=== PATIENT | female | born 1960 | race Two or more races ===

== ENCOUNTER 2024-03-23 12:22 | Emergency (ER) | payer MEDICARE, SELFPAY ==
[2024-03-23 12:24] VITALS: BMI 39.1
[2024-03-23 12:39] VITALS: BP 140/73; PULSE 85; RESP 18; TEMP 36.9; O2SAT 97; BMI 43.0
--- NOTE | 2024-03-23 12:41 | XR_ITS ---
Examination: Pelvic ultrasound, transabdominal, complete Technique: Transabdominal ultrasound of the pelvis performed using grayscale imaging Date and time of exam: March 23, 2024 1347 hours INDICATIONS: Postmenopausal bleeding episode 14 days ago FINDINGS: Uterus 10.7 x 4.8 x 7.1 cm anteverted Uterine fundal area of fibroid degeneration 2.7 x 2.0 x 2.5 cm uterine body area of fibroid degeneration 4.2 x 3.6 x 4.8 cm Endometrial stripe 0.4 cm Ovaries obscured by bowel gas IMPRESSION: Uterine areas of fibroid degeneration as above Endometrial stripe is not thickened
--- NOTE | 2024-03-23 12:59 | PD.EDRME ---
Rapid Medical Screening Exam RME Arrival date/time: 03/23/24 12:22 64-year-old female presents to the emergency department complaints of vaginal bleeding x 2 weeks Chief Complaint: Urogenital-Female Time Seen by Provider: 03/23/24 12:28 Vital signs: Vital Signs Temperature 98.5 F 03/23/24 12:39 Pulse Rate 85 03/23/24 12:39 Respiratory Rate 18 03/23/24 12:39 Blood Pressure 140/73 H 03/23/24 12:39 Pulse Oximetry (%) 97 03/23/24 12:39 Oxygen Delivery Method Room Air 03/23/24 12:39
[2024-03-23 13:04] LABS: Basophils % (Auto) 1 % (0-2.5); Eosinophils # (Auto) 0.2 Thou/mm3 (0.0-0.5); Eosinophils % (Auto) 3 % (0-10); Hematocrit 35.1 % (36.0-46.0); Hemoglobin 11.4 g/dL (12.0-16.0); Immature Granulocytes % (Auto) 0 % (0-0); Immature Granulocytes Auto 0.01 Thou/mm3 (0.00-0.00); Lymphocytes # (Auto) 1.8 Thou/mm3 (1.0-4.8); Lymphocytes % (Auto) 28 % (10-50); Mean Corpuscular HGB Conc 32.5 g/dl (31.0-37.0); Mean Corpuscular Hemoglobin 24.9 pg (25.0-35.0); Mean Corpuscular Volume 77 fL (80-100); Monocytes # (Auto) 0.4 Thou/mm3 (0.0-0.8); Monocytes % (Auto) 6 % (0-12); Neutrophils % (Auto) 63 % (37-80); Nucleated Red Blood Cell % 0 /100 WBC (0); Platelet Count 235 Thou/mm3 (140-440); RDW Standard Deviation 41.9 fL (36.4-46.3); Red Blood Count 4.58 Miln/mm3 (4.00-5.20); White Blood Count 6.3 Thou/mm3 (3.6-11.0)
[2024-03-23 13:23] LABS: Partial Thromboplastin Time 25.6 Seconds (22.0-36.0)
[2024-03-23 13:42] LABS: Alanine Aminotransferase < 7 U/L (10-49); Albumin, Serum 4.3 gm/dL (3.4-4.8); Albumin/Globulin Ratio 1.5 (1.2-2.2); Alkaline Phosphatase 85 U/L (46-116); Anion Gap 7 (7-16); Aspartate Amino Transferase 10 U/L (0-34); BUN/Creatinine Ratio 18 Ratio (12-20); Bilirubin,Total 0.8 mg/dL (0.3-1.2); Blood Urea Nitrogen 11 mg/dL (9-23); Carbon Dioxide 24.9 mMol/L (20.0-31.0); Chloride 108 mMol/L (98-107); Creatinine (Component) 0.6 mg/dL (0.6-1.3); Estimated Creatinine Clearance 99.2 mL/min (>60); Globulin 2.9 gm/dL (2.3-3.5); Glucose 148 mg/dL (74-106); Lipase 36 U/L (12-53); Osmolality,Calculated 281 (275-295); Potassium 4.1 mMol/L (3.4-5.1); Sodium 140 mMol/L (136-145); Total Protein 7.2 gm/dL (5.7-8.2); eGFR > 60 See Note
[2024-03-23 13:55] LABS: Collection Type, Urine Clean Catch; Squamous Epithelial Cell,Urine 0 /hpf (0-5)
[2024-03-23 14:02] LABS: Bilirubin,Urine Negative (Negative); Blood,Urine 3+ (Negative); Clarity,Urine Clear (Clear/Hazy); Color,Urine Colorless (Lt Yel-Yel); Culture Indicated,Urine Not Indicated; Glucose, Urine Negative (Negative); Ketones,Urine Negative (Negative); Leukocyte Esterase,Urine Negative (Negative); Nitrite,Urine Negative (Negative); PH,Urine 6.5 (5.0-7.0); Protein,Urine Negative (Neg - Trace); RBC,Urine 7 /hpf (0-3); Specific Gravity,Urine 1.006 (1.001-1.035); Urobilinogen,Urine Negative mg/dL (0.0-1.0); WBC,Urine 1 /hpf (0-5)
--- NOTE | 2024-03-23 16:03 | PD.EDFMALE ---
ED Female Urogenital RME/HPI General Chief complaint: Urogenital-Female Stated complaint: Vaginal bleeding x14DAY Time Seen by Provider: 03/23/24 12:28 Arrival date/time: 03/23/24 12:22 RME / HPI RME / HPI Narrative: 03/23/24 12:22 64-year-old female presents to the emergency department complaints of vaginal bleeding x 2 weeks This section includes all my notes and documentations, including HPI, PE, and ED course.? Magdi Osuna MD HPI: 64-year-old female here with 2-week history of vaginal bleeding and lower abdominal pain. No nausea or vomiting. Eating normally. No fever or chills. No urinary symptoms. No other complaints. ROS: All negative except as documented in HPI. Physical Exam: General:? Alert and oriented.? No acute distress when remaining still.?? Eyes:? Conjunctivae and lids clear.? ENT:? No nasal congestion.? Neck:? Supple.? Heart:? RRR.? Lungs:? No respiratory distress.? Good air movement.? No rhonchi, wheezing, rales.?? Abdomen:? Soft and nontender.?? Legs:? No clubbing, cyanosis, edema.? Skin:? Warm and dry.?? Neuro:? Alert and oriented X 3.?? I reviewed all diagnostic test results. My interpretation of the pelvic ultrasound is uterine areas of fibroid degeneration. Blood tests and urine tests?unremarkable. At this point, diagnoses include?fibrosis. Recommended more outpatient care. Based on my best medical judgment, made decision no further evaluation or treatment indicated at this time.? Patient understands and agrees to the discharge instructions customized and printed, see below. Discharge Instructions from Dr. Osuna printed for you: 1. After evaluation, you have fibroids in your uterus. This is not cancer. But they are tumors that can cause pain and bleeding. 2. Fortunately, you didn't lose too much blood needing transfusion. 3. But to help your body restore the blood loss, we need to increase iron in your diet, such as red meat and egg yolks. 4. Tylenol with codeine for severe pain. 5. See a private doctor outside the ER on 03/24/2024 for recheck and further care. Ask to review all test results and official radiology reports, to make sure you receive all necessary follow-ups and monitoring. Ask for a referral to see chief librarian extension department for further care of your fibroids. 6. Seek immediate medical care with intolerable pain, severe vaginal bleeding (soaking more than 3 pads per hour), or with any concerns. Instrucciones de tim del Dr. Osuna impresas para usted: 1. Despu?s de la evaluaci?n, tiene fibromas en el ?tero. No se trata de c?ncer, mila son tumores que pueden causar dolor y sangrado. 2. Afortunadamente, no perdi? demasiada ivon denny para necesitar lillie transfusi?n. 3. Mila para ayudar a leong cuerpo a recuperar la p?rdida de ivon, necesitamos aumentar el hua en leong dieta, denny la carne max y las yemas de huevo. 4. Tylenol con code?na para el dolor intenso. 5. Visite a un m?dico privado fuera de la mary de emergencias el 03/24/2024 para que lo revisen nuevamente y le brinden m?s atenci?n. Pida que le revisen todos los resultados de las pruebas y los informes radiol?gicos oficiales para asegurarse de recibir todos los seguimientos y controles necesarios. Pida lillie derivaci?n para nba a un ginec?logo para recibir m?s atenci?n para chelsy fibromas. 6. Busque atenci?n m?dica inmediata si tiene dolor intolerable, sangrado vaginal intenso (que empape m?s de 3 toallas sanitarias por hora) o si tiene alguna inquietud. Related Data Home Medications ?Medication ?Instructions ?Recorded ?Confirmed benazepril 10 mg tablet 1 tab PO QDAY 12/23/17 09/02/21 metformin 500 mg tablet 1,000 mg PO BID 12/23/17 09/02/21 (Glucophage) multivitamin 1 tab PO QAM 12/23/17 09/02/21 gabapentin 100 mg capsule 100 mg PO TID 09/28/18 09/02/21 levothyroxine 25 mcg tablet 25 mcg PO QDAY 09/28/18 09/02/21 oxybutynin chloride 5 mg tablet 5 mg PO QDAY 07/10/21 09/02/21 Previous Rx's ?Medication ?Instructions ?Recorded acetaminophen 300 mg-codeine 30 mg 2 tab PO TID PRN pain #20 tabs 03/23/24 tablet Allergies Allergy/AdvReac Type Severity Reaction Status Date / Time No Known Allergies Allergy Verified 03/23/24 12:27 Review of Systems Review of Systems Systems Reviewed: All systems reviewed, normal except as documented Past Medical History Past Medical History NEUROLOGIC: Positive Neurological Disorders, Cerebrovascular Accident (possible mild 6 years ago) and Brain Tumor CARDIAC: Positive Cardiac Disorders, Hypercholesterolemia (no meds) and Hypertension REPRODUCTIVE: Positive Previous Pregnancies MUSCULOSKELETAL: Positive Musculoskeletal Disorders, Arthritis and Fractures ENDOCRINE: Positive Endocrine Disorders and Diabetes Mellitus Type 2 OTHER HISTORY: Positive Radiation Therapy Family History FAMILY HISTORY: Positive Family Cardiac Disorders, Family Gastrointestinal Problems and Family Cancer Surgical History SURGICAL: Positive Joint Replacement, Arthroscopy, Neurologic Surgery and Tubal Ligation Social History SMOKING STATUS: Never smoker SECOND HAND EXPOSURE: No ED Exam Narrative Physical exam: As noted in HPI Course Quality Measures none Orders Category Date Time Status US pelvic complete Stat Exams 03/23/24 12:41 Completed CBC Stat Lab 03/23/24 12:51 Completed Comprehensive Metabolic Panel Stat Lab 03/23/24 12:51 Completed Lipase Stat Lab 03/23/24 12:51 Completed PT [Prothrombin Time with INR] Stat Lab 03/23/24 12:51 Completed PTT [Partial Thromboplastin Time] Stat Lab 03/23/24 12:51 Completed UA, C/S IF [Urinalysis, C/S if Indicated] Stat Lab 03/23/24 13:48 Completed Vital Signs Vital signs: Vital Signs Temperature 98.5 F 03/23/24 12:39 Pulse Rate 85 03/23/24 12:39 Respiratory Rate 18 03/23/24 12:39 Blood Pressure 140/73 H 03/23/24 12:39 Pulse Oximetry (%) 97 03/23/24 12:39 Oxygen Delivery Method Room Air 03/23/24 12:39 Pulse ox is 97% on room air which is adequate. Urogenital - Female Patient data External records reviewed:: [facility] previous records Clinical information provided by:: patient and family Social determinants that could affect healthcare access:: none Patient has the following chronic illnesses:: Hypertension, diabetes How is presenting disease/condition affected by chronic disease/condition?: uneffected by Evaluation data The following diagnostics were reviewed and interpreted by me:: lab results and radiology exam(s) Lab and/or radiology exams considered but not ordered:: None Interpretation Summary: Fibroids Medications / Prescriptions Medications or Prescriptions considered but not ordered:: None Medication administrations:: None Consultations Consultation(s) initiated? (list below): No Diagnosis Urogenital Female Differential Diagnosis: urinary tract infection, ovarian cyst, ruptured ovarian cyst, cystitis and other (Fibroids, appendicitis) Most likely diagnosis given after review of the tests above:: Fibroids Admission Indicated Admission indicated?: not indicated Explain why admission is indicated or not indicated:: Admission criteria not met Admission Request Was there a request for admission?: No Disposition Plan Disposition Plan: Discharge Discharge Attestation Discharge Attestation: The patient and all family members were given an opportunity to ask questions and understood the discharge instructions. Discharge instructions specifically effects, indications for sooner follow up or return to the emergency department, and the expected course of current diagnosis. Patient condition: Stable Discharge Plan Plan Patient Disposition: HOME (Self Care) Prescriptions/Referrals Prescriptions/Med Rec: New acetaminophen-codeine 300-30 mg tablet 2 tab PO TID MDD 6 PRN (Reason: pain) Qty: 20 0RF No Action oxybutynin chloride 5 mg tablet 5 mg PO QDAY multivitamin Tablet 1 tab PO QAM benazepril 10 mg Tablet 1 tab PO QDAY metformin [Glucophage] 500 MG tablet 1,000 mg PO BID levothyroxine 25 mcg Tablet 25 mcg PO QDAY gabapentin 100 mg Capsule 100 mg PO TID Referrals: Shaylee Gallo FNP [Primary Care Provider] - In 1 week Problem List Clinical Impression: Fibroids Patient/Caregiver Discharge Instructions Discharge Activity: activity as tolerated Education Materials: ED Uterine Fibroids Additional Instructions: Discharge Instructions from Dr. Osuna printed for you: 1. After evaluation, you have fibroids in your uterus. This is not cancer. But they are tumors that can cause pain and bleeding. 2. Fortunately, you didn't lose too much blood needing transfusion. 3. But to help your body restore the blood loss, we need to increase iron in your diet, such as red meat and egg yolks. 4. Tylenol with codeine for severe pain. 5. See a private doctor outside the ER on 03/24/2024 for recheck and further care. Ask to review all test results and official radiology reports, to make sure you receive all necessary follow-ups and monitoring. Ask for a referral to see chief librarian extension department for further care of your fibroids. 6. Seek immediate medical care with intolerable pain, severe vaginal bleeding (soaking more than 3 pads per hour), or with any concerns. Instrucciones de tim del Dr. Osuna impresas para usted: 1. Despu?s de la evaluaci?n, tiene fibromas en el ?tero. No se trata de c?ncer, mila son tumores que pueden causar dolor y sangrado. 2. Afortunadamente, no perdi? demasiada ivon denny para necesitar lillie transfusi?n. 3. Mila para ayudar a leong cuerpo a recuperar la p?rdida de ivon, necesitamos aumentar el hua en leong dieta, denny la carne max y las yemas de huevo. 4. Tylenol con code?na para el dolor intenso. 5. Visite a un m?dico privado fuera de la mary de emergencias el 03/24/2024 para que lo revisen nuevamente y le brinden m?s atenci?n. Pida que le revisen todos los resultados de las pruebas y los informes radiol?gicos oficiales para asegurarse de recibir todos los seguimientos y controles necesarios. Pida lillie derivaci?n para nba a un ginec?logo para recibir m?s atenci?n para chelsy fibromas. 6. Busque atenci?n m?dica inmediata si tiene dolor intolerable, sangrado vaginal intenso (que empape m?s de 3 toallas sanitarias por hora) o si tiene alguna inquietud. Print Language: Turkish Stand Alone Forms: [employer]enu Award Info., Patient Portal Info Letter
== END 2024-03-23 22:32 | disposition home or self-care (01) ==
PROVIDERS: Nurse Practitioner Primary Care; Emergency Provider Emergency Medicine; PCP Nurse Practitioner Family
DX: D25.9 Leiomyoma of uterus, unspecified (principal)
CPT/HCPCS: 36415; 76856; 80053; 81001; 83690; 85025; 85610; 85730; 99284

== ENCOUNTER → 2024-05-30 | Outpatient (CLI) | payer MEDICARE, SELFPAY ==
[2024-05-30 08:38] LABS: Basophils % (Auto) 0 % (0-2.5); Eosinophils # (Auto) 0.2 Thou/mm3 (0.0-0.5); Eosinophils % (Auto) 3 % (0-10); Hematocrit 36.9 % (36.0-46.0); Immature Granulocytes % (Auto) 0 % (0-0); Immature Granulocytes Auto 0.02 Thou/mm3 (0.00-0.00); Lymphocytes # (Auto) 1.7 Thou/mm3 (1.0-4.8); Lymphocytes % (Auto) 28 % (10-50); Mean Corpuscular HGB Conc 32.5 g/dl (31.0-37.0); Mean Corpuscular Volume 80 fL (80-100); Monocytes # (Auto) 0.3 Thou/mm3 (0.0-0.8); Monocytes % (Auto) 6 % (0-12); Neutrophils # (Auto) 3.8 Thou/mm3 (1.8-7.7); Neutrophils % (Auto) 63 % (37-80); Nucleated Red Blood Cell % 0 /100 WBC (0); Platelet Count 254 Thou/mm3 (140-440); RDW Standard Deviation 41.1 fL (36.4-46.3); Red Blood Count 4.61 Miln/mm3 (4.00-5.20); White Blood Count 6.1 Thou/mm3 (3.6-11.0)
[2024-05-30 08:47] LABS: Glucose Estimated Average 154 mg/dL (80-131)
[2024-05-30 09:10] LABS: Alanine Aminotransferase 13 U/L (10-49); Albumin, Serum 4.1 gm/dL (3.4-4.8); Albumin/Globulin Ratio 1.5 (1.2-2.2); Alkaline Phosphatase 93 U/L (46-116); Anion Gap 10 (7-16); Aspartate Amino Transferase < 8 U/L (0-34); BUN/Creatinine Ratio 14 Ratio (12-20); Bilirubin,Total 0.7 mg/dL (0.3-1.2); Blood Urea Nitrogen 10 mg/dL (9-23); Calcium 8.9 mg/dL (8.3-10.6); Calcium (Corrected) 8.9 mg/dL (8.5-10.1); Carbon Dioxide 24.9 mMol/L (20.0-31.0); Cardiac Risk Estimate 4.7 RATIO (3.7-5.6); Chloride 106 mMol/L (98-107); Cholesterol 218 mg/dL (132-200); Creatinine (Component) 0.7 mg/dL (0.6-1.3); Globulin 2.7 gm/dL (2.3-3.5); Glucose 153 mg/dL (74-106); HDL Cholesterol 46 mg/dL (40-60); LDL Cholesterol,Calculated 135 mg/dL (0-130); Osmolality,Calculated 283 (275-295); Potassium 4.2 mMol/L (3.4-5.1); Sodium 141 mMol/L (136-145); Total Protein 6.8 gm/dL (5.7-8.2); Triglycerides 183 mg/dL (30-150); eGFR > 60 See Note
[2024-05-30 11:19] LABS: Creatinine MALB Rnd Ur 181 mg/dL (30-125); Microalbumin Creat Ratio 7 mg/gCrea (<30); Microalbumin, Random Urine 13 mg/L (0-300)
== END | disposition home or self-care (01) ==
LOC: COPL 07:50
PROVIDERS: PCP Family Medicine; Referring Provider Student in an Organized Health Care Education/Training Program; Visit Provider Student in an Organized Health Care Education/Training Program
DX: D64.9 Anemia, unspecified (principal); E11.65 Type 2 diabetes mellitus with hyperglycemia; E78.5 Hyperlipidemia, unspecified; I10 Essential (primary) hypertension
CPT/HCPCS: 36415; 80053; 80061; 82043; 82570; 83036; 85025

== ENCOUNTER → 2024-06-12 | Outpatient (CLI) | payer MEDICARE, SELFPAY ==
--- NOTE | 2024-06-12 | XR_ITS ---
Examination: Screening digital mammography, bilateral Computer aided detection 3-D breast Tomosynthesis, bilateral Date and time of exam: June 12, 2024 at 1228 hours Compared to mammograms dating to May 20, 2015 Indication: Screening Technique: Nonmagnified MLO, CC views of the breasts to been obtained, reconstructed from 3-D Tomosynthesis images. R2 computer aided detection program utilized for evaluation of suspicious masses and/or abnormal calcifications. 3-D Tomosynthesis images obtained. Findings: Scattered areas of fibroglandular density 14 mm focal asymmetry upper outer left breast Benign calcifications Impression: BI-RADS Category 0: Incomplete: Additional imaging evaluation 14 mm focal asymmetry upper outer left breast, recommend follow-up spot tomographic views of this asymmetry as well as left breast sonography to complete workup
--- NOTE | 2024-06-12 12:00 | XR_ITS ---
Examination: Transvaginal ultrasound of the pelvis, complete Technique: Transvaginal sonographic images pelvis performed using abreu scale imaging Exam date and time: June 12, 2024 1159 hours INDICATIONS: Postmenopausal bleeding episode 2 months ago FINDINGS: Uterus 6.9 cm fundal uterine mass 13 x 13 x 14 mm Endometrial stripe 0.8 cm Ovaries obscured by bowel gas IMPRESSION: Abnormal thickening of the endometrial stripe, differential would include endometrial hyperplasia, malignant neoplasm of the endometrium Recommend MRI pelvis follow-up pre and postcontrast.
--- NOTE | 2024-06-12 12:30 | XR_ITS ---
Examination: Bone densitometry Date and time of exam:June 12, 2024 1230 hours INDICATIONS: Menopause age 44 Technique: Lumbar spine and hip total bone mineralization values of an calculated. Peak reference and age match control results have been displayed. Findings: Lumbar spine total bone mineralization is0.839 gm/cm2. This is 1.9 standard deviations below peak reference. This is 0.1 standard deviations below age-matched controls. Hip total bone mineralization is 0.731 gm/cm2 This is 1.7 standard deviations below peak reference. This is 0.6 standard deviations below age-matched controls Impression: There is osteopenia based on lumbar spine measurements. There is osteoporosis based on hip measurements
== END | disposition home or self-care (01) ==
LOC: CDIM 11:38
PROVIDERS: PCP Family Medicine; Referring Provider Student in an Organized Health Care Education/Training Program; Visit Provider Student in an Organized Health Care Education/Training Program
DX: Z12.31 Encounter for screening mammogram for malignant neoplasm of breast (principal); R92.8 Other abnormal and inconclusive findings on diagnostic imaging of breast; N64.89 Other specified disorders of breast; R93.89 Abnormal findings on diagnostic imaging of other specified body structures; M85.88 Other specified disorders of bone density and structure, other site; M81.0 Age-related osteoporosis without current pathological fracture
CPT/HCPCS: 76830; 77063; 77067; 77080

== ENCOUNTER 2024-06-21 12:56 | Outpatient (AMB) | payer MEDICARE, SELFPAY ==
[2024-06-21 13:22] VITALS: BP 146/85; PULSE 81; RESP 81; TEMP 36; O2SAT 99; BMI 42.8
--- NOTE | 2024-06-21 13:22 | GYNCLNT_ITS ---
Vital Signs 06/21/24 13:22 Height 1.52 m Height Method Stated Weight 98.94 kg Weight Measurement Method Standing Scale BMI 42.8 BP 146/85 H Blood Pressure Source Automatic Cuff Blood Pressure Location Left Upper Arm Position Sitting Respiration 81 H Pulse 81 Pulse Source Monitor Temp 96.8 F Temp Source Oral Pulse Oximetry (%) 99 Oxygen Delivery Method Room Air Allergies/Home Meds Allergies & Medications Allergies No Known Allergies Allergy (Verified 06/21/24 13:23) Medication Reconciliation benazepril 10 mg tablet 1 tab PO QDAY 12/23/17 [History Confirmed 06/21/24] metformin 500 mg tablet (Glucophage) 1,000 mg PO BID 12/23/17 [History Confirmed 06/21/24] multivitamin 1 tab PO QAM 12/23/17 [History Confirmed 06/21/24] gabapentin 100 mg capsule 100 mg PO TID 09/28/18 [History Confirmed 06/21/24] levothyroxine 25 mcg tablet 25 mcg PO QDAY 09/28/18 [History Confirmed 06/21/24] oxybutynin chloride 5 mg tablet 5 mg PO QDAY 07/10/21 [History Confirmed 06/21/24] acetaminophen 300 mg-codeine 30 mg tablet 2 tab PO TID PRN pain #20 tabs 03/23/24 [Rx Confirmed 06/21/24] Intake Visit Data Collection New Patient or Established: Established Patient (seen at [facility] within 3 years) Reason for Visit:: Referral for postmenopausal bleeding Seen by Clinical Staff ONLY (RN/MA): No Physical Therapy Instructor Required: Yes Do You Feel Safe at Home: Yes ([employer]/ [employer] ) Authorities Contacted: N/A PCP or OBGYN visit in last 3 months: Yes Date of Last PCP or OBGYN visit: 06/12/24 Hx Now: No Are you currently on any form of Control: No Pain Present Currently: No Pain Scale Used: Pisano-Nunez/Numerical Pain scale:: 0 Smoking Status Smoking Status: Never smoker Mold Operator history Mold Operator History Menstrual regularity: irregular Monthly: No Age at menarche: 12 Menopausal: Yes If menopausal, at what age did it occur: 44 Years of hormone replacement (if applicable): 0 Currently sexually active: No Questionnaires PHQ-9 PHQ-2 Over the last 2 weeks, how often have you been bothered by any of the following problems? 1. Little interest or pleasure in doing things: not at all 2. Feeling down, depressed, or hopeless: not at all Total score: 0 PHQ-9 3. Trouble falling or staying asleep, or sleeping too much: Not at all 4. Feeling tired or having little energy: Not at all 5. Poor appetite or overeating: Not at all 6. Feeling bad about yourself - or that you are a failure or have let yourself or your family down: Not at all 7. Trouble concentrating on things, such as reading the newspaper or watching television: Not at all 8. Moving or speaking so slowly that other people could have noticed? - Or the opposite - being so fidgety or restless that you have been moving around a lot more than usual: not at all 9. Thoughts that you would be better off or of hurting yourself in some way: Not at all Total score: 0 If you checked off any problems, how difficult have these problems made it for you to do your work, take care of things at home, or get along with other people?: not difficult at all Source: Developed by Drs. Demetrio Capellan, Teresa Quiñonez, Mendoza Jones and colleagues, with an educational elsy from [employer]. Depression screen completed yes Social History Living Situation History Marital Status: Single Lives With: Family Housing: House Housing Other:: pt lives with daughter Tobacco History Smoking Status: Never smoker Second Hand Smoke Exposure: No Alcohol History Alcohol Intake: Never Domestic Abuse History Do You Feel Safe at Home: Yes ([employer]/ [employer] ) Past Medical History Past Medical History Have you ever been diagnosed with any of the following: Neurological Problems Cerebrovascular Accident (CVA): Yes (possible mild 6 years ago) Brain Tumor: Yes (Patient's status post 2 brain surgeries and radiation. No records availabl) Seizures: No Cardiology Problems Hypercholesterolemia: Yes (no meds) Congestive Heart Failure: No Hypertension: Yes Respiratory Problems Asthma: No Tuberculosis: No Stomache/Intestinal Problems Colorectal Cancer: No Genital/Urinary Problems Renal Disease: No Reproductive Problems Breast Cancer: No Fibroids: Yes Previous Pregnancies: Yes (History of vaginal delivery x 7 in the past) Musculoskeletal Problems Arthritis: Yes Rheumatoid Arthritis: No Fractures: Yes Endocrine Problems Diabetes Mellitus Type 1: No Diabetes Mellitus Type 2: Yes Hyperthyroidism: No Hypothyroidism: No Blood Problems Anemia: Yes Other Problems Hospitalization: Yes (For childbirth and brain surgeries) Blood Transfusions: No Anesthesia Reactions: No Radiation Therapy: Yes (For brain neoplasms) Surgical History Additional Surgical History: Brain surgery x 2, left knee surgery x 2. Vaginal delivery x 7. History of Present Illness HPI Narrative The patient is a very pleasant , Libyan-speaking only 64-year-old presents as a referral from Pran[facility] for postmenopausal bleeding. The patient has been bleeding on and off for 2 months. I do not have any lab work but I do have an ultrasound revealing patient to have 2 fibroids present. One is 2.7 x 2 x 2.5 cm in the uterine body and the other is 4.2 x 3.6 x 4.8 cm. The uterus was anteverted measuring 10.7 x 4.8 x 7.1 cm and the stripe was 0.4 cm. This was performed 03/23/2024. Patient presents today to discuss her postmenopausal bleeding. Of note she is Libyan-speaking only and the entire history and physical exam is conducted with my medical office assistant instructor Holden as a miller kiln dried salt. Review of Systems Review of Systems Narrative Review of Systems: Patient reports vaginal bleeding x 2 months. She stopped her cycles at age 44. She is not on blood thinners. She denies being sexually active. She denies abnormal discharge or pelvic pain. Exam Narrative Physical exam: Patient is pleasant and cooperative. General General Appearance: alert, comfortable, cooperative, well groomed and obese Neck Neck exam: Present normal inspection, full ROM and trachea midline Chest Chest inspection: Present normal inspection and symmetric chest wall rise Resp Respiratory exam: Present normal lung sounds bilaterally Card Cardiovascular exam: Present regular rate, normal rhythm and normal heart sounds Abdominal Abdominal exam: Present soft, normal bowel sounds and other (Abdomen obese ) External exam: Present normal external exam Speculum exam: Present normal speculum exam Bimanual exam: Present other (Uterine enlargement. Difficult to palpate secondary to body habitus. Approximately 8 weeks size uterus.) Psych Psychiatric exam: Present normal affect and normal mood Skin Skin exam: Present warm, dry, intact and normal color Assessment & Plan Diagnosis / Problem List (1) Malignant neoplasm of brain: Status: Acute Qualifiers: Malignant neoplasm of brain location: cerebellum Qualified Code(s): C71.6 - Malignant neoplasm of cerebellum Assessment and Plan: Patient needs to be cleared by neuro before undergoing any surgery. (2) Abnormal vaginal bleeding in postmenopausal patient: Status: Acute Plan: The patient will need a hysteroscopy dilation curettage versus a hysterectomy. Patient prefers a hysterectomy. An endometrial biopsy could not be performed in the office today (3) Intramural uterine fibroid: Status: Acute Assessment and Plan: Patient has 2 fibroids present which is likely the reason she is having postmenopausal bleeding. (4) Morbid obesity with BMI of 40.0-44.9, adult: Status: Acute Assessment and Plan: An elevated BMI puts the patient at higher risk for uterine cancer. It also meets make surgical removal of her uterus more difficult. Will consider total abdominal hysterectomy versus an LAVH. Additional Plan Follow Up: 6 Weeks Advanced Care Planning Advance care planning discussed with:: patient Office Procedures OB Clinic LOC & Office Proc's Nursing/Assessment Patient Status: Established Patient OB Clinic Nursing Assessment: BP Monitoring, Medication Reconciliation, Update PMH in EMR and Vital Signs OB Clinic Coordination of Care: Consent,records obtained, informed consent, Education Simp Pt/Fam and Staff clarify orders Miscellaneous Interventions: Pelvic/Pap Smear Set up Established Patient Charge Established Patient Point Assignment: 95 Established Patient Point Charge: EP Level 3 (80-115)
== END 2024-06-21 13:47 | disposition home or self-care (01) ==
LOC: HODSOBC 12:56
PROVIDERS: PCP Family Medicine; Referring Provider Family Medicine; Supervising Provider Obstetrics & Gynecology; Visit Provider Obstetrics & Gynecology
DX: N95.0 Postmenopausal bleeding (principal); C71.6 Malignant neoplasm of cerebellum; D25.1 Intramural leiomyoma of uterus; E66.01 Morbid (severe) obesity due to excess calories; Z68.41 Body mass index [BMI] 40.0-44.9, adult
CPT/HCPCS: 99213; G0463

== ENCOUNTER → 2024-07-04 | Outpatient (CLI) | payer MEDICARE, SELFPAY ==
--- NOTE | 2024-07-04 08:30 | XR_ITS ---
Examination: Breast ultrasound, unilateral, left complete INDICATIONS: Mammogram June 12, 2024 14 mm focal asymmetry upper outer left breast Date and time of exam: July 04, 2024 0819 hours Technique: Real-time abreu scale ultrasonographic imaging performed left breast including all 4 quadrants as well as nipple retroareolar and axillary region. Findings: No cystic or solid mass IMPRESSION: BI-RADS Category 1: Negative study
--- NOTE | 2024-07-04 09:00 | XR_ITS ---
Examination: Diagnostic digital mammography, unilateral, left Computer aided detection 3-D breast Tomosynthesis, unilateral Date and time of exam: July 04, 2024 0807 hours INDICATIONS: Mammogram June 12, 2024 14 mm focal asymmetry upper outer left breast Technique: Nonmagnified MLO, CC views of the left breast have been obtained, reconstructed from 3-D Tomosynthesis images. R2 computer aided detection program utilized for evaluation of suspicious masses and/or abnormal calcifications. 3-D Tomosynthesis images obtained. Findings: Scattered areas of fibroglandular density. No suspicious mass is noted on the spot compression views Impression: BI-RADS category 2: Benign findings Return to yearly follow-up mammography
== END | disposition home or self-care (01) ==
LOC: CDIM 07:52
PROVIDERS: Referring Provider Student in an Organized Health Care Education/Training Program; Visit Provider Student in an Organized Health Care Education/Training Program
DX: R92.322 Mammographic fibroglandular density, left breast (principal)
CPT/HCPCS: 76641; 77061; 77065; G0279

== ENCOUNTER → 2024-08-29 | Outpatient (CLI) | payer MEDICARE, MEDICAID, SELFPAY ==
--- NOTE | 2024-08-29 08:28 | XR_ITS ---
Examination: PA lateral chest 2 views TECHNIQUE: Upright PA lateral chest 2 views 12/29/2024 0834 hours INDICATIONS: Coughing chest pain beginning 2 weeks ago. FINDINGS: Normal heart size Lungs are clear. The osseous structures are intact IMPRESSION: No active disease
[2024-08-29 09:37] LABS: Quantiferon-TB* See Sep Rpt
[2024-08-29 10:54] LABS: Basophils % (Auto) 0 % (0-2.5); Eosinophils # (Auto) 0.2 Thou/mm3 (0.0-0.5); Eosinophils % (Auto) 2 % (0-10); Hemoglobin 12.2 g/dL (12.0-16.0); Immature Granulocytes % (Auto) 1 % (0-0); Immature Granulocytes Auto 0.05 Thou/mm3 (0.00-0.00); Lymphocytes # (Auto) 1.7 Thou/mm3 (1.0-4.8); Lymphocytes % (Auto) 26 % (10-50); Mean Corpuscular HGB Conc 33.9 g/dl (31.0-37.0); Mean Corpuscular Hemoglobin 27.2 pg (25.0-35.0); Mean Corpuscular Volume 80 fL (80-100); Monocytes # (Auto) 0.4 Thou/mm3 (0.0-0.8); Monocytes % (Auto) 5 % (0-12); Neutrophils # (Auto) 4.3 Thou/mm3 (1.8-7.7); Neutrophils % (Auto) 65 % (37-80); Nucleated Red Blood Cell % 0 /100 WBC (0); Platelet Count 236 Thou/mm3 (140-440); RDW Standard Deviation 38.5 fL (36.4-46.3); Red Blood Count 4.49 Miln/mm3 (4.00-5.20); White Blood Count 6.6 Thou/mm3 (3.6-11.0)
[2024-08-29 11:17] LABS: Alanine Aminotransferase 19 U/L (10-49); Albumin, Serum 4.2 gm/dL (3.4-4.8); Albumin/Globulin Ratio 1.4 (1.2-2.2); Alkaline Phosphatase 87 U/L (46-116); Anion Gap 11 (7-16); Aspartate Amino Transferase 17 U/L (0-34); BUN/Creatinine Ratio 11 Ratio (12-20); Bilirubin,Total 0.7 mg/dL (0.3-1.2); Blood Urea Nitrogen 8 mg/dL (9-23); Carbon Dioxide 27.2 mMol/L (20.0-31.0); Cardiac Risk Estimate 5.1 RATIO (3.7-5.6); Chloride 106 mMol/L (98-107); Cholesterol 216 mg/dL (132-200); Creatinine (Component) 0.7 mg/dL (0.6-1.3); Globulin 2.9 gm/dL (2.3-3.5); Glucose 123 mg/dL (74-106); HDL Cholesterol 42 mg/dL (40-60); LDL Cholesterol,Calculated 120 mg/dL (0-130); Osmolality,Calculated 286 (275-295); Sodium 144 mMol/L (136-145); Total Protein 7.1 gm/dL (5.7-8.2); Triglycerides 272 mg/dL (30-150); eGFR > 60 See Note
[2024-08-29 11:58] LABS: Misc Send Out* See Sep Rpt
[2024-08-29 12:44] LABS: Cocci Serology, IgM Negative (Negative)
[2024-08-30 13:25] LABS: Cocci Serology, IgG Negative (Negative)
== END | disposition home or self-care (01) ==
LOC: CDIM 08:11
PROVIDERS: PCP Family Medicine; Referring Provider Student in an Organized Health Care Education/Training Program; Visit Provider Student in an Organized Health Care Education/Training Program
DX: R05.9 Cough, unspecified (principal); E11.65 Type 2 diabetes mellitus with hyperglycemia; E78.5 Hyperlipidemia, unspecified; I10 Essential (primary) hypertension
CPT/HCPCS: 36415; 71046; 80053; 80061; 83036; 85025; 86331; 86480; 86635

== ENCOUNTER 2024-08-30 08:13 | Outpatient (AMB) | payer MEDICARE, MEDICAID, SELFPAY ==
[2024-08-30 08:25] VITALS: BP 128/76; PULSE 76; RESP 18; TEMP 36.2; O2SAT 95; BMI 42.7
--- NOTE | 2024-08-30 08:25 | AMB.GYNCLNOT ---
Vital Signs 08/30/24 08:25 Height 1.52 m Height Method Stated Weight 98.883 kg Weight Measurement Method Standing Scale BMI 42.7 BP 128/76 Blood Pressure Source Automatic Cuff Blood Pressure Location Left Upper Arm Position Sitting Respiration 18 Pulse 76 Pulse Source Monitor Temp 97.2 F Temp Source Oral Pulse Oximetry (%) 95 Oxygen Delivery Method Room Air Allergies/Home Meds Allergies & Medications Allergies No Known Allergies Allergy (Verified 08/30/24 08:26) Medication Reconciliation benazepril 10 mg tablet 1 tab PO QDAY 12/23/17 [History Confirmed 08/30/24] metformin 500 mg tablet (Glucophage) 1,000 mg PO BID 12/23/17 [History Confirmed 08/30/24] multivitamin 1 tab PO QAM 12/23/17 [History Confirmed 08/30/24] gabapentin 100 mg capsule 100 mg PO TID 09/28/18 [History Confirmed 08/30/24] levothyroxine 25 mcg tablet 25 mcg PO QDAY 09/28/18 [History Confirmed 08/30/24] oxybutynin chloride 5 mg tablet 5 mg PO QDAY 07/10/21 [History Confirmed 08/30/24] acetaminophen 300 mg-codeine 30 mg tablet 2 tab PO TID PRN pain #20 tabs 03/23/24 [Rx Confirmed 08/30/24] Intake Visit Data Collection New Patient or Established: Established Patient (seen at [facility] within 3 years) Reason for Visit:: Follow-up on postmenopausal bleeding Seen by Clinical Staff ONLY (RN/MA): No Stock Order Lister Required: Yes Stock Order Lister's name/title: HOLDEN LARA MA Do You Feel Safe at Home: Yes Authorities Contacted: N/A PCP or OBGYN visit in last 3 months: Yes Date of Last PCP or OBGYN visit: 06/21/24 Hx Now: No Are you currently on any form of Control: No Pain Present Currently: No Pain Scale Used: Pisano-Nunez/Numerical Pain scale:: 0 Smoking Status Smoking Status: Never smoker 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: No Menopausal: Yes Currently sexually active: No ENVIRONMENTAL SCIENCE INSTRUCTOR: Past Medical History Past Medical History: Yes Hx Neurological Disorders, No Hx Hypothyroidism, No Hx Hyperthyroidism, No Hx Breast Cancer, Yes Hx Cardiac Disorders, Yes Hx Hypertension, No Hx Blood Disorders, Yes Hx Anemia, No Hx Gastrointestinal Disorders, No Hx Renal Disease, No Hx Diabetes Mellitus Type 1, Yes Hx Diabetes Mellitus Type 2 and Yes Hx Tubal Ligation Additional Operations/Hospitalizations (year & reason): History of brain surgery x 2 in the past Other Relevant History: x 7 Questionnaires Covid-19 Vaccine Questionnaire Has patient been vacinated for Covid-19 Have you been vacinated for Covid-19: Yes PHQ-9 PHQ-2 Over the last 2 weeks, how often have you been bothered by any of the following problems? 1. Little interest or pleasure in doing things: not at all 2. Feeling down, depressed, or hopeless: not at all Total score: 0 PHQ-9 3. Trouble falling or staying asleep, or sleeping too much: Not at all 4. Feeling tired or having little energy: Not at all 5. Poor appetite or overeating: Not at all 6. Feeling bad about yourself - or that you are a failure or have let yourself or your family down: Not at all 7. Trouble concentrating on things, such as reading the newspaper or watching television: Not at all 8. Moving or speaking so slowly that other people could have noticed? - Or the opposite - being so fidgety or restless that you have been moving around a lot more than usual: not at all 9. Thoughts that you would be better off or of hurting yourself in some way: Not at all Total score: 0 If you checked off any problems, how difficult have these problems made it for you to do your work, take care of things at home, or get along with other people?: not difficult at all Source: Developed by Drs. Demetrio Capellan, Teresa Quiñonez, Mendoza Jones and colleagues, with an educational elsy from [employer]. Depression screen completed yes Social History Living Situation History Marital Status: Lives With: Family Housing: House Housing Other:: pt lives with daughter Tobacco History Smoking Status: Never smoker Second Hand Smoke Exposure: No Alcohol History Alcohol Intake: Never Domestic Abuse History Do You Feel Safe at Home: Yes History of Present Illness HPI Narrative The patient is a 64-year-old G7, P7 who presents for follow-up. She is Korean-speaking only, and the entire interview is conducted with my senior medical transcriptionist Holden salvador. She has been having postmenopausal bleeding. She had one ultrasound in March revealing a normal-sized uterus, a stripe of approximately 0.4 cm and 2 small fibroids 1 measuring about 2-1/2 x 2-1/2 cm and another measuring 3 about 4 by 4 cm. She had a second ultrasound repeated in May revealing only one fibroid to be present and her stripe was 0.8 cm. The patient has had brain surgery. And after the first interview in June ,I asked her to get clearance from the neurologist if were going to consider surgery. Patient has her clearance from the neurologist or neurosurgeon in [place]. We will copy and place it on the chart. The patient was told to retain her copy. The patient is not interested in going to sleep just for a hysteroscopy and D&C. She would like definitive treatment in the form of a hysterectomy. As the patient does have fibroids, I think this is a reasonable option as she will likely continue to have some type of postmenopausal bleeding in the future and we will most likely have to repetitively work this up. Office Procedures OB Clinic LOC & Office Proc's Nursing/Assessment Patient Status: Established Patient OB Clinic Nursing Assessment: Medication Reconciliation, Update PMH in EMR and Vital Signs OB Clinic Coordination of Care: Education Complex Pt/Fam, Consent,records obtained, informed consent, Education Simp Pt/Fam, Lab and Imaging orders and Staff clarify orders Special Needs: Language special needs Established Patient Charge Established Patient Point Assignment: 95 Established Patient Point Charge: EP Level 3 (80-115) Assessment & Plan Diagnosis / Problem List (1) Morbid obesity with BMI of 40.0-44.9, adult: Status: Acute Assessment and Plan: Patient might qualify for a laparoscopic-assisted vaginal hysterectomy. Will authorize for this with possible abdominal hysterectomy (2) Intramural uterine fibroid: Status: Acute Assessment and Plan: LAVH BSO versus CHRISTEN/BSO (3) Abnormal vaginal bleeding in postmenopausal patient: Status: Acute Assessment and Plan: LAVH BSO versus CHRISTEN/BSO Advanced Care Planning Advance care planning discussed with:: other (Did not discuss)
== END 2024-08-30 09:33 | disposition home or self-care (01) ==
LOC: HODSOBC 08:13
PROVIDERS: PCP Family Medicine; Referring Provider Family Medicine; Supervising Provider Obstetrics & Gynecology; Visit Provider Obstetrics & Gynecology
DX: N95.0 Postmenopausal bleeding (principal); D25.1 Intramural leiomyoma of uterus; E66.01 Morbid (severe) obesity due to excess calories; Z68.41 Body mass index [BMI] 40.0-44.9, adult
CPT/HCPCS: 99213; G0463

== ENCOUNTER 2024-10-24 14:20 | Outpatient (AMB) | payer MEDICARE, SELFPAY ==
[2024-10-24 14:56] VITALS: BP 131/78; PULSE 71; RESP 17; TEMP 35.7; O2SAT 95; BMI 42.5
--- NOTE | 2024-10-24 14:56 | AMB.GYNCLNOT ---
Vital Signs 10/24/24 14:56 Height 1.52 m Height Method Measured Weight 98.203 kg Weight Measurement Method Standing Scale BMI 42.5 BP 131/78 H Blood Pressure Source Automatic Cuff Blood Pressure Location Right Upper Arm Position Sitting Respiration 17 Pulse 71 Pulse Source Monitor Temp 96.3 F L Temp Source Temporal Artery Scan Pulse Oximetry (%) 95 Oxygen Delivery Method Room Air Allergies/Home Meds Allergies & Medications Allergies No Known Allergies Allergy (Verified 10/24/24 14:56) Medication Reconciliation benazepril 10 mg tablet 1 tab PO QDAY 12/23/17 [History Confirmed 10/24/24] metformin 500 mg tablet (Glucophage) 1,000 mg PO BID 12/23/17 [History Confirmed 10/24/24] multivitamin 1 tab PO QAM 12/23/17 [History Confirmed 10/24/24] gabapentin 100 mg capsule 100 mg PO TID 09/28/18 [History Confirmed 10/24/24] levothyroxine 25 mcg tablet 25 mcg PO QDAY 09/28/18 [History Confirmed 10/24/24] oxybutynin chloride 5 mg tablet 5 mg PO QDAY 07/10/21 [History Confirmed 10/24/24] acetaminophen 300 mg-codeine 30 mg tablet 2 tab PO TID PRN pain #20 tabs 03/23/24 [Rx Confirmed 10/24/24] clobetasol 0.05 % topical ointment 1 applic topical BID 1 week #60 grams 11/14/24 [Rx] estradiol 0.01% (0.1 mg/gram) vaginal cream 1 g vaginal QDAY 30 days #42.5 grams 11/14/24 [Rx] Intake Visit Data Collection New Patient or Established: Established Patient (seen at [facility] within 3 years) Reason for Visit:: SURGERY REFERRAL Consent obtained for Telemed Visit: No Seen by Clinical Staff ONLY (RN/MA): No Wire Hanger Required: Yes Wire Hanger's name/title: PRUDENCIO SALAS Do You Feel Safe at Home: Yes Authorities Contacted: N/A PCP or OBGYN visit in last 3 months: Yes Date of Last PCP or OBGYN visit: 08/30/24 Hx Now: No Are you currently on any form of Control: No Pain Present Currently: No Pain Scale Used: Pisano-Nunez/Numerical Pain scale:: 0 Smoking Status Smoking Status: Never smoker 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 Menstrual regularity: regular Flow: normal Monthly: No Age at menarche: 12 Menopausal: Yes If menopausal, at what age did it occur: 44 Currently sexually active: 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 1. Little interest or pleasure in doing things: not at all 2. Feeling down, depressed, or hopeless: not at all Total score: 0 PHQ-9 3. Trouble falling or staying asleep, or sleeping too much: Not at all 4. Feeling tired or having little energy: Not at all 5. Poor appetite or overeating: Not at all 6. Feeling bad about yourself - or that you are a failure or have let yourself or your family down: Not at all 7. Trouble concentrating on things, such as reading the newspaper or watching television: Not at all 8. Moving or speaking so slowly that other people could have noticed? - Or the opposite - being so fidgety or restless that you have been moving around a lot more than usual: not at all 9. Thoughts that you would be better off or of hurting yourself in some way: Not at all Total score: 0 If you checked off any problems, how difficult have these problems made it for you to do your work, take care of things at home, or get along with other people?: not difficult at all Source: Developed by Drs. Demetrio Capellan, Teresa Quiñonez, Mendoza Jones and colleagues, with an educational elsy from [employer]. Social History Living Situation History Lives With: Family Housing: House Housing Other:: pt lives with daughter Tobacco History Smoking Status: Never smoker Second Hand Smoke Exposure: No Alcohol History Alcohol Intake: Never Domestic Abuse History Do You Feel Safe at Home: Yes History of Present Illness HPI Narrative Nasrin Campos is a 64-year-old postmenopausal female with a history of nonischemic chest pain, type 2 diabetes mellitus, hypertension, and brain tumor in remission, presenting with abnormal uterine bleeding secondary to leiomyomas. She initially reported intermittent uterine bleeding for 2 months in June 2024. The patient's bleeding has continued since her initial presentation. She was seen again on August 30, 2024, with persistent uterine bleeding. Nasrin has expressed a preference for hysterectomy over hysteroscopy or D&C as a treatment option. The patient reports receiving hormone injections for menopausal symptoms, including vaginal dryness and anxiety. These injections appear to have triggered the uterine bleeding, with her uterus responding to the hormones as if she were cycling again. Nasrin has not reported any other associated symptoms or impacts on her daily functioning. There have been notable changes in Nasrin's uterine measurements since her last visit. An ultrasound in March 2024 showed a uterus measuring 10.7 cm with two leiomyomas: one 2.7 by 2 by 2.5 cm in the uterine body, and another 4.2 by 3.6 by 4.8 cm. However, a more recent transvaginal ultrasound on June 12, 2024, revealed a smaller uterus measuring 6.9 cm with a fundal uterine mass of 13 by 13 by 14 mm. This discrepancy suggests that the uterus was initially inflamed and has since decreased in size. The patient has been taking hormone injections for menopausal symptoms like vaginal dryness and anxiety, which caused the uterine bleeding. She also uses hormone for wet skin application once a day. ROS: Genitourinary: Positive for intermittent uterine bleeding. Musculoskeletal: Positive for low back pain. Diagnostic Test Results and Labs: - Ultrasound (March 2024): Uterus 10.7 cm, endometrial stripe 0.4 cm, leiomyomas 2.7 x 2.0 x 2.5 cm in uterine body and 4.2 x 3.6 x 4.8 cm - Transvaginal ultrasound (06/12/2024): Uterus 6.9 cm, endometrial stripe 0.8 cm, fundal uterine mass 13 x 13 x 14 mm, ovaries obscured by gas Exam General General Appearance: alert, in no apparent distress and healthy appearing Head Head exam: atraumatic Neck Neck exam: Present normal inspection and trachea midline Chest Chest inspection: Present normal inspection and symmetric chest wall rise External exam: Present normal external exam; Absent tenderness Neuro Neurological exam: Present oriented X3 Psych Psychiatric exam: Present normal affect and normal mood Office Procedures OB Clinic LOC & Office Proc's Nursing/Assessment Patient Status: Established Patient OB Clinic Nursing Assessment: Medication Reconciliation, Update PMH in EMR and Vital Signs OB Clinic Coordination of Care: Complex Care and Chronic Disease 1-5, Consent,records obtained, informed consent, Education Simp Pt/Fam, 4+ Authorizations needed, Lab and Imaging orders and Results/Orders obtained Established Patient Charge Established Patient Point Assignment: 120 Established Patient Point Charge: Level 4 (120-155) Assessment & Plan Diagnosis / Problem List (1) Postmenopause atrophic vaginitis: Status: Acute (2) Intramural uterine fibroid: Status: Acute (3) Abnormal vaginal bleeding in postmenopausal patient: Status: Acute Plan Abnormal Uterine Bleeding (AUB) secondary to Leiomyomas: - 64-year-old postmenopausal female with intermittent uterine bleeding for 2 months. - Ultrasound findings show two leiomyomas: one 2.7 x 2 x 2.5 cm in uterine body, another 4.2 x 3.6 x 4.8 cm. - Recent transvaginal ultrasound shows smaller uterus measuring 6.9 cm with fundal mass 13 x 13 x 14 mm. - Bleeding likely due to hormone injections causing uterine response. Plan: - Order MRI to confirm ultrasound findings. - Check hormone levels due to recent injections. - Prescribe hormone for wet skin application once daily. - Review MRI results to determine next steps. - No immediate need for surgery at this time. Menopausal Symptoms: - Patient reports vaginal dryness and anxiety. - Currently receiving hormone injections with resultant uterine bleeding as side effect. Plan: - Discontinue hormone injections. - Prescribe topical hormone for wet skin application once daily. - Monitor for improvement of menopausal symptoms and resolution of uterine bleeding. Advanced Care Planning Advance care planning discussed with:: patient
== END 2024-10-24 16:02 | disposition home or self-care (01) ==
LOC: HODSOBC 14:20
PROVIDERS: Supervising Provider Obstetrics & Gynecology; Visit Provider Obstetrics & Gynecology
DX: N95.2 Postmenopausal atrophic vaginitis (principal); D25.1 Intramural leiomyoma of uterus; N95.0 Postmenopausal bleeding
CPT/HCPCS: 99214; G0463

== ENCOUNTER → 2024-11-14 | Outpatient (CLI) | payer MEDICARE, SELFPAY ==
[2024-11-14 10:39] LABS: Basophils # (Auto) 0.0 Thou/mm3 (0.0-0.2); Basophils % (Auto) 1 % (0-2.5); Eosinophils # (Auto) 0.1 Thou/mm3 (0.0-0.5); Eosinophils % (Auto) 2 % (0-10); Hematocrit 37.4 % (36.0-46.0); Hemoglobin 12.4 g/dL (12.0-16.0); Immature Granulocytes Auto 0.04 Thou/mm3 (0.00-0.00); Lymphocytes # (Auto) 1.5 Thou/mm3 (1.0-4.8); Lymphocytes % (Auto) 24 % (10-50); Mean Corpuscular HGB Conc 33.2 g/dl (31.0-37.0); Mean Corpuscular Hemoglobin 28.0 pg (25.0-35.0); Mean Corpuscular Volume 84 fL (80-100); Monocytes # (Auto) 0.4 Thou/mm3 (0.0-0.8); Monocytes % (Auto) 6 % (0-12); Neutrophils # (Auto) 4.4 Thou/mm3 (1.8-7.7); Neutrophils % (Auto) 68 % (37-80); Nucleated Red Blood Cell # 0.00 Thou/mm3 (0.00-0.00); Nucleated Red Blood Cell % 0 /100 WBC (0); Platelet Count 226 Thou/mm3 (140-440); RDW Standard Deviation 41.4 fL (36.4-46.3); Red Blood Count 4.43 Miln/mm3 (4.00-5.20); White Blood Count 6.4 Thou/mm3 (3.6-11.0)
[2024-11-14 10:49] LABS: Follicle Stimulating Hormone 48.64 mIU/mL (See Note)
[2024-11-14 10:50] LABS: Alanine Aminotransferase 38 U/L (10-49); Albumin, Serum 4.3 gm/dL (3.4-4.8); Albumin/Globulin Ratio 1.5 (1.2-2.2); Alkaline Phosphatase 97 U/L (46-116); Anion Gap 9 (7-16); Aspartate Amino Transferase 23 U/L (0-34); BUN/Creatinine Ratio 23 Ratio (12-20); Bilirubin,Total 0.3 mg/dL (0.3-1.2); Blood Urea Nitrogen 16 mg/dL (9-23); Calcium 9.4 mg/dL (8.3-10.6); Calcium (Corrected) 9.4 mg/dL (8.5-10.1); Carbon Dioxide 27.8 mMol/L (20.0-31.0); Chloride 106 mMol/L (98-107); Creatinine (Component) 0.7 mg/dL (0.6-1.3); Globulin 2.8 gm/dL (2.3-3.5); Glucose 120 mg/dL (74-106); Osmolality,Calculated 287 (275-295); Potassium 3.9 mMol/L (3.4-5.1); Sodium 143 mMol/L (136-145); Total Protein 7.1 gm/dL (5.7-8.2); eGFR > 60 See Note
[2024-11-23 07:00] LABS: Estradiol, Ultrasensitive* 8 pg/mL
== END | disposition home or self-care (01) ==
LOC: COPL 09:34
PROVIDERS: PCP Student in an Organized Health Care Education/Training Program; Referring Provider Obstetrics & Gynecology; Visit Provider Obstetrics & Gynecology
DX: N95.0 Postmenopausal bleeding (principal)
CPT/HCPCS: 36415; 80053; 82670; 83001; 83036; 84443; 85025

== ENCOUNTER → 2024-11-28 | Outpatient (CLI) | payer MEDICARE, MEDICAID, SELFPAY ==
--- NOTE | 2024-11-28 10:31 | XR_ITS ---
Examination: Knee, right , 3 views Technique: Knee AP, lateral, oblique 3 views Date and time of exam: November 28, 2024, 1040 hours INDICATIONS: Right knee pain beginning one week ago. FINDINGS: Prominent osteopenia. Small old bone density adjacent to lateral femoral condyle Mild to moderate narrowing medial joint space right knee Mild osteoarthritis patellofemoral joint No fracture IMPRESSION: Mild to moderate narrowing medial joint space right knee
== END | disposition home or self-care (01) ==
PROVIDERS: Referring Provider Student in an Organized Health Care Education/Training Program; Visit Provider Student in an Organized Health Care Education/Training Program
DX: M25.861 Other specified joint disorders, right knee (principal)
CPT/HCPCS: 73562

== ENCOUNTER → 2024-11-29 | Outpatient (CLI) | payer MEDICARE, MEDICAID, SELFPAY ==
[2024-11-29 09:53] LABS: Glucose Estimated Average 148 mg/dL (80-131); Hemoglobin A1C 6.8 % Hgb (4.8-6.0)
[2024-11-29 10:10] LABS: Cardiac Risk Estimate 4.4 RATIO (3.7-5.6); Cholesterol 227 mg/dL (132-200); HDL Cholesterol 52 mg/dL (40-60); LDL Cholesterol,Calculated 136 mg/dL (0-130); Triglycerides 194 mg/dL (30-150)
== END | disposition home or self-care (01) ==
LOC: COPL 08:25
PROVIDERS: PCP Student in an Organized Health Care Education/Training Program; Referring Provider Student in an Organized Health Care Education/Training Program; Visit Provider Student in an Organized Health Care Education/Training Program
DX: E78.5 Hyperlipidemia, unspecified (principal); E11.65 Type 2 diabetes mellitus with hyperglycemia
CPT/HCPCS: 36415; 80061; 83036

== ENCOUNTER → 2025-01-25 | Outpatient (CLI) | payer MEDICARE, MEDICAID, SELFPAY ==
[2025-01-24 09:25] LABS: Basophils # (Auto) 0.0 Thou/mm3 (0.0-0.2); Basophils % (Auto) 1 % (0-2.5); Eosinophils # (Auto) 0.1 Thou/mm3 (0.0-0.5); Eosinophils % (Auto) 2 % (0-10); Hematocrit 37.0 % (36.0-46.0); Hemoglobin 12.4 g/dL (12.0-16.0); Immature Granulocytes Auto 0.03 Thou/mm3 (0.00-0.00); Lymphocytes # (Auto) 1.7 Thou/mm3 (1.0-4.8); Lymphocytes % (Auto) 24 % (10-50); Mean Corpuscular HGB Conc 33.5 g/dl (31.0-37.0); Mean Corpuscular Hemoglobin 28.4 pg (25.0-35.0); Mean Corpuscular Volume 85 fL (80-100); Monocytes # (Auto) 0.4 Thou/mm3 (0.0-0.8); Monocytes % (Auto) 5 % (0-12); Neutrophils # (Auto) 4.6 Thou/mm3 (1.8-7.7); Neutrophils % (Auto) 67 % (37-80); Nucleated Red Blood Cell # 0.00 Thou/mm3 (0.00-0.00); Nucleated Red Blood Cell % 0 /100 WBC (0); Platelet Count 259 Thou/mm3 (140-440); RDW Standard Deviation 38.5 fL (36.4-46.3); Red Blood Count 4.36 Miln/mm3 (4.00-5.20); White Blood Count 6.9 Thou/mm3 (3.6-11.0)
[2025-01-24 09:39] LABS: Alanine Aminotransferase 39 U/L (10-49); Albumin, Serum 4.6 gm/dL (3.4-4.8); Albumin/Globulin Ratio 1.8 (1.2-2.2); Alkaline Phosphatase 98 U/L (46-116); Anion Gap 9 (7-16); Aspartate Amino Transferase 28 U/L (0-34); BUN/Creatinine Ratio 14 Ratio (12-20); Bilirubin,Total 0.4 mg/dL (0.3-1.2); Blood Urea Nitrogen 11 mg/dL (9-23); Calcium 9.0 mg/dL (8.3-10.6); Calcium (Corrected) 9.0 mg/dL (8.5-10.1); Carbon Dioxide 29.1 mMol/L (20.0-31.0); Chloride 105 mMol/L (98-107); Creatinine (Component) 0.8 mg/dL (0.6-1.3); Globulin 2.6 gm/dL (2.3-3.5); Glucose 123 mg/dL (74-106); Osmolality,Calculated 285 (275-295); Potassium 3.9 mMol/L (3.4-5.1); Sodium 143 mMol/L (136-145); Total Protein 7.2 gm/dL (5.7-8.2); eGFR > 60 See Note
--- NOTE | 2025-01-25 15:30 | XR_ITS ---
Examination: MRI pelvis with intravenous contrast. MRI pelvis without intravenous contrast. Date and time of exam: January 25, 2025, 1609 hours INDICATIONS: Diagnosis postmenopausal atrophic vaginitis, diagnosis intramural leiomyoma of the uterus, abnormal thickening of the endometrial stripe 8 mm on transvaginal pelvic sonogram June 12, 2024 Technique: Multiple axial, sagittal and coronal sections of the pelvis obtained. Transverse images, TR 6020, TE 107. T1 weighted transverse images, TR 582, TE 9.5. T2-weighted sagittal images, TR 4000, TE 105. T2-weighted sagittal images, TR 4000, TE 5. Coronal images, TR 4210, TE 107. Axial and coronal images are obtained post 20 cc intravenous injection, gadolinium. Findings: Anteverted uterus, 7 x 3.5 x 3 0 cm 10 mm uterine fundal mass consistent with fibroid degeneration Endometrial stripe is 2.5 mm Post contrast images demonstrate no abnormal enhancement in the uterus including no abnormal enhancement endometrial stripe No adnexal mass No free fluid in the pelvis No pelvic lymphadenopathy Bladder intact IMPRESSION: Small uterine area fibroid degeneration No abnormality of the endometrial stripe on this study, no enhancing endometrial lesion Recommend follow-up transvaginal pelvic sonography in 6 months
== END | disposition home or self-care (01) ==
LOC: SMRI 14:12
PROVIDERS: PCP Student in an Organized Health Care Education/Training Program; Referring Provider Obstetrics & Gynecology; Visit Provider Obstetrics & Gynecology
DX: D25.9 Leiomyoma of uterus, unspecified (principal); N95.2 Postmenopausal atrophic vaginitis
CPT/HCPCS: 36415; 72197; 80053; 85025; A9577